=== PATIENT | female | born 1985 | race Caucasian/White ===

== ENCOUNTER 2017-04-19 16:04 | Emergency (ER) | payer MEDICAID ==
[2017-04-19 16:05] VITALS: BMI 27.1
== END 2017-04-19 16:18 | disposition left against medical advice (07) ==
LOC: C.ER 16:04
DX: I10 Essential (primary) hypertension (principal); Z02.9 Encounter for administrative examinations, unspecified

== ENCOUNTER 2018-10-25 13:26 | Emergency (ER) | payer MEDICAID ==
[2018-10-25 13:26] VITALS: BMI 27.1
[2018-10-25 13:43] VITALS: BP 107/72; PULSE 83; RESP 20; TEMP 98.2; O2SAT 100
[2018-10-25] MEDS ORDERED: Sodium Chloride 0.9% 1,000 ML IV ONE (14:31)
--- NOTE | 2018-10-25 14:34 | C.PDOC ---
History Of Present Illness 33 y/o female presents to the ED complaining of diarrhea for the past 4 days. Of note patient is currently , approximately 25 weeks along. LMP was 04/27/18. Patient denies any associated fever, chills, nausea, vomiting, pain, bloody stool, or urinary complaints. Reports she has watery diarrhea every time she eats. Patient is . She denies any vaginal bleeding or discharge. Time Seen by Provider: 10/25/18 14:15 Chief Complaint (Nursing): GI Problem History Per: Patient History/Exam Limitations: no limitations Onset/Duration Of Symptoms: Days (4) Current Symptoms Are (Timing): Still Present Pain Scale Rating Of: 0 Associated Symptoms: Diarrhea Last Menstral Period: 04/27/18 : 4 Para: 3 Past Medical History Reviewed: Historical Data, Nursing Documentation, Vital Signs Vital Signs: Last Vital Signs Temp 98.2 F 10/25/18 13:41 Pulse 83 10/25/18 13:41 Resp 20 10/25/18 13:41 BP 107/72 10/25/18 13:41 Pulse Ox 100 10/25/18 13:41 - Medical History PMH: Asthma Surgical History: (x2) - [facility] Procedures LOW CERVICAL (09/15/14) Family History: States: Unknown Family Hx - Social History Hx Alcohol Use: No Hx Substance Use: No - Immunization History Hx Tetanus Toxoid Vaccination: No Hx Influenza Vaccination: Yes (06/2015) Review Of Systems Except As Marked, All Systems Reviewed And Found Negative. Constitutional: Negative for: Fever, Chills Respiratory: Negative for: Shortness of Breath Gastrointestinal: Positive for: Diarrhea. Negative for: Nausea, Vomiting, Hematochezia Genitourinary: Negative for: Dysuria, Frequency, Vaginal Discharge, Vaginal Bleeding Skin: Negative for: Rash Neurological: Negative for: Weakness, Dizziness Physical Exam - Physical Exam Appears: Non-toxic, No Acute Distress Skin: Warm, Dry Head: Atraumatic, Normacephalic Eye(s): bilateral: Normal Inspection, PERRL, EOMI Neck: Normal ROM Chest: Symmetrical Cardiovascular: Rhythm Regular, No Murmur Respiratory: Normal Breath Sounds, No Accessory Muscle Use Gastrointestinal/Abdominal: Soft, No Tenderness, No Guarding, Other (Gravid abdomen) Back: No CVA Tenderness Extremity: Bilateral: Atraumatic, Normal Color And Temperature Pulses: Left Dorsalis Pedis: Normal, Right Dorsalis Pedis: Normal Neurological/Psych: Oriented x3, Normal Speech ED Course And Treatment - Laboratory Results Result Diagrams: 10/25/18 14:50 10/25/18 14:50 Lab Interpretation: Normal O2 Sat by Pulse Oximetry: 100 (RA) Pulse Ox Interpretation: Normal Progress Note: Treated with IVF NSS. ON re-evaluation abdomen soft in no distress Reassessment Condition: Improved Medical Decision Making Medical Decision Making: Plan: * Labs * IV fluids infusing Disposition Counseled Patient/Family Regarding: Studies Performed, Diagnosis, Need For Followup - Disposition Referrals: [facility] [Outside] [facility] [Outside] Disposition: HOME/ ROUTINE Disposition Time: 16:30 Condition: IMPROVED Additional Instructions: Follow up with [facility] for further evaluation Instructions: Diarrhea and Traveler's Diarrhea, Adult (DC) Forms: [employer] (Telugu) Print Language: [place] - POA Present On Arrival: None - Clinical Impression Clinical Impression: Diarrhea - PA / PAINTER ROUGH / Resident Statement MD/DO has reviewed & agrees with the documentation as recorded. - Scribe Statement The provider has reviewed the documentation as recorded by the Scribe Elvia Shaffer All medical record entries made by the Scribe were at my direction and personally dictated by me. I have reviewed the chart and agree that the record accurately reflects my personal performance of the history, physical exam, medical decision making, and the department course for this patient. I have also personally directed, reviewed, and agree with the discharge instructions and disposition.
[2018-10-25] MEDS ORDERED: Sodium Chloride 0.9% 1,000 ML ONE (14:43)
[2018-10-25 14:56] LABS: SQUAMOUS EPITHIAL 5 /hpf (0-5); URINE BACTERIA RARE (<OCC); URINE BILIRUBIN NEGATIVE (NEGATIVE); URINE BLOOD NEGATIVE (NEGATIVE); URINE CLARITY Clear (Clear); URINE COLOR Yellow (YELLOW); URINE GLUCOSE (UA) NORMAL (Normal); URINE LEUKOCYTE ESTERASE TRACE Leu/uL (Negative); URINE PROTEIN NEGATIVE (NEGATIVE)
[2018-10-25 14:57] LABS: BASO % 0.5 % (0.0-2.0); EOS # 0.1 K/uL (0.0-0.7); EOS % 0.8 % (0.0-4.0); HEMOGLOBIN 12.6 g/dL (11.0-16.0); LYMPH # 1.7 K/uL (1.0-4.3); LYMPH % 16.1 % (20.0-40.0); MEAN CELL VOLUME 91.8 fL (81.0-99.0); MEAN CORPUSCULAR HGB CONC 33.7 g/dL (33.0-37.0); MEAN PLATELET VOLUME 8.1 fL (7.2-11.7); MONO # 0.6 K/uL (0.0-0.8); MONO % 5.5 % (0.0-10.0); NEUT # 8.1 K/uL (1.8-7.0); NEUT % 77.1 % (50.0-75.0); NRBC % 0.1 % (0.0-2.0); RBC 4.08 Mil/uL (3.80-5.20); RED CELL DISTRIBUTION WIDTH 13.3 % (11.5-14.5); WHITE BLOOD COUNT 10.5 K/uL (4.8-10.8)
[2018-10-25 15:08] LABS: ALB/GLOB RATIO 1.2 (1.0-2.1); ALBUMIN 3.9 g/dL (3.5-5.0); ALT/SGPT 45 U/L (9-52); AST/SGOT 23 U/L (14-36); BLOOD UREA NITROGEN 5 mg/dL (7-17); CALCIUM 8.6 mg/dl (8.6-10.4); GFR NON-AFRICAN AMERICAN > 60; LIPASE 107 U/L (23-300)
== END 2018-10-25 17:09 | disposition home or self-care (01) ==
LOC: C.ER 13:26
DX: R19.7 Diarrhea, unspecified (principal)
CPT/HCPCS: 80053; 81001; 83690; 85025; 96360; 99284; J7030